=== PATIENT | male | born 1980 | race Caucasian/White ===

== ENCOUNTER → 2017-07-16 | Outpatient (CLI) | payer OTHER | END | disposition home or self-care (01) | LOC: KCIC MRI 08:32 | DX: M51.36 Other intervertebral disc degeneration, lumbar region (principal); M48.061 Spinal stenosis, lumbar region without neurogenic claudication | CPT/HCPCS: 72148 ==

== ENCOUNTER → 2018-09-16 | Outpatient (CLI) | payer OTHER ==
--- NOTE | 2018-09-16 09:22 | KCIC ---
MRI Lumbar Spine without contrast History: Low back pain, right hip pain Technique: Multiplanar, multi sequential noncontrast MR imaging was performed of the lumbar spine. Comparison: July 16, 2017 Findings: There again appears to be transitional anatomy. Most inferior fully formed intervertebral disc space is again considered L5-S1. Lumbar vertebral body stature and AP alignment are maintained. There is again mild disc desiccation L5-S1. Conus terminates at L1-2. There is no significant marrow edema. L1-L2, L2-3: Spinal canal and neural foramina are adequate. These levels were not included on the axial images. L3-L4: Neural foramina and spinal canal are adequate. There is mild to moderate facet hypertrophic change. L4-L5: There is mild buckling of the ligamentum flavum. There is minimal disc osteophyte complex. There is minimal narrowing of the inferior left neural foramen, right neural foramen adequate. Spinal canal is overall adequate. L5-S1: There is again moderate facet hypertrophic change somewhat greater on the right. There is again fluid in the right facet articulation. There is minimal buckling of the ligamentum flavum. There is minimal disc osteophyte complex, greater in the inferior neural foramina. Spinal canal is adequate. There is again yaln-mo-vfibynya narrowing of left neural foramen due to disc osteophyte complex and facet hypertrophic change, disc osteophyte complex near undersurface exiting left L5 nerve root. There is moderate to severe narrowing greater distally of the right neural foramen due to disc osteophyte complex and facet hypertrophic change, also probable tiny synovial cyst at the superior margin about 0.2 cm AP by 0.4 cm transverse by 0.2 cm CC although present previously and overall smaller. There is also contact of the undersurface exiting right L5 nerve root by disc osteophyte complex. Impression: 1. There is again transitional anatomy of the lumbar spine, most inferior fully formed intervertebral disc space considered L5-S1. There is no new significant lumbar spinal stenosis. There is again narrowing of the right L5-S1 neural foramen in part by a synovial cyst at the superior margin although smaller in interval. There is contact of the exiting right L5 nerve root. There is facet degenerative change greatest on the right at L5-S1. Electronically signed by: Carter Heredia MD (09/16/2018 9:19 AM) [facility]-KCIC[facility]
== END | disposition home or self-care (01) ==
LOC: KCIC MRI 08:27
PROVIDERS: ATTEND Physician Assistant Medical
DX: M47.817 Spondylosis without myelopathy or radiculopathy, lumbosacral region (principal); M48.07 Spinal stenosis, lumbosacral region; M71.38 Other bursal cyst, other site; M25.78 Osteophyte, vertebrae
CPT/HCPCS: 72148

== ENCOUNTER → 2018-11-21 | Outpatient (CLI) | payer OTHER ==
[~2018-11-21] MED LIST: CYCL10TA2 PO; FENO145T30 PO; LISI10TA2 PO; MELO15TA23 PO
--- NOTE | 2018-11-21 15:52 | EKG ---
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
[2018-11-21 16:05] LABS: BASO # 0.1 x10^3/uL (0.0-0.2); BASO % 1 % (0-3); EOS # 0.1 x10^3/uL (0.0-0.7); EOS % 2 % (0-3); HEMATOCRIT 47.2 % (39.0-53.0); HEMOGLOBIN 16.5 g/dL (13.0-17.5); LYMPH # 2.4 x10^3/uL (1.0-4.8); LYMPH % 27 % (24-48); MEAN CORPUSCULAR HEMOGLOBIN 32 pg (25-35); MEAN CORPUSCULAR HGB CONC 35 g/dL (31-37); MEAN CORPUSCULAR VOLUME 90 fL (79-100); MONO # 0.5 x10^3/uL (0.0-1.1); MONO % 6 % (0-9); NEUT # 5.8 x10^3/uL (1.8-7.7); NEUT % 65 % (31-73); PLATELET COUNT 321 x10^3/uL (140-400); RED BLOOD COUNT 5.22 x10^6/uL (4.30-5.70); RED CELL DISTRIBUTION WIDTH 13.2 % (11.5-14.5); WHITE BLOOD COUNT 8.9 x10^3/uL (4.0-11.0)
[2018-11-21 16:41] LABS: ALBUMIN 4.6 g/dL (3.4-5.0); ALBUMIN/GLOBULIN RATIO 1.4 (1.0-1.7); CALCIUM 9.7 mg/dL (8.5-10.1); CREATININE 1.1 mg/dL (0.7-1.3); GFR 74.5; POTASSIUM 4.1 mmol/L (3.5-5.1); TOTAL BILIRUBIN 0.5 mg/dL (0.2-1.0)
== END | disposition home or self-care (01) ==
LOC: SURGPAT 13:30
PROVIDERS: ATTEND Neurological Surgery
DX: Z01.818 Encounter for other preprocedural examination (principal); M48.07 Spinal stenosis, lumbosacral region; M47.27 Other spondylosis with radiculopathy, lumbosacral region; M71.30 Other bursal cyst, unspecified site; I10 Essential (primary) hypertension
CPT/HCPCS: 36415; 80053; 85025; 87641; 93005

== ENCOUNTER 2018-12-02 07:22 | Day surgery (SDC) | payer OTHER ==
--- NOTE | 2018-12-01 17:04 | HP ---
ADMIT DATE: 12/02/2018 PREOPERATIVE HISTORY AND PHYSICAL DATE OF SURGERY: 12/02/2018 HISTORY OF PRESENT ILLNESS: The patient is a pleasant 38-year-old who has difficulty with right inguinal pain as well as right posterior thigh pain. His problem started in 2013. He fell from the back of a truck. He says his pain is 7/10. Sitting increases his pain; lying down helps him. He takes meloxicam and Flexeril. He had epidural steroid injections in 2016 without any help. He has had physical therapy without help in the past as well. There is no significant problem on the left side. PHYSICAL EXAMINATION: GENERAL APPEARANCE: On neurosurgical examination, alert, pleasant, no acute distress. HEAD: Normocephalic and atraumatic. SKIN: Warm and dry. MUSCULOSKELETAL: Lumbar paraspinal muscle bulk is normal, restricted range of motion of the lumbar spine, gorh-lb-pdbvnlzo tenderness of the lower lumbar spine with palpation, normal range of motion of the lower extremities bilaterally. EXTREMITIES: No clubbing, cyanosis, or edema. NEUROLOGIC: Alert and oriented x3; normal recent and remote memory; strength 5/5 in bilateral lower extremities; sensory was intact to light touch in bilateral lower extremities; reflexes were present and symmetric in lower extremities bilaterally; positive straight leg raising on the right, negative straight leg raising on the left; normal gait. IMAGING REVIEWED: I reviewed a lumbar MRI scan. On that study, the principal problems were at L5-S1. He has posterior disk bulging. There is severe narrowing of the right neural foramen due to disk osteophyte complex and facet hypertrophy. There also appears to be a synovial cyst present with the foramen. The L5 root on the right appears to be in contact with the disk osteophyte complex. PAST MEDICAL HISTORY: Arthritis, headaches, migraines, and hypertension. PAST SURGICAL HISTORY: Right ear surgery. FAMILY HISTORY: Diabetes, heart problems or disease, hypertension, and spine problems. 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 He is . He exercises weekly. He denies tobacco use currently; drinks alcohol 1-2 times per year; drinks coffee. ALLERGIES: No known drug allergies. CURRENT MEDICATIONS: Cyclobenzaprine, fenofibrate, lisinopril, and meloxicam. ASSESSMENT/ PLAN: The patient has a multiyear history of back and right leg pain, which has failed to improve with extensive conservative management. There is a synovial cyst as well as hypertrophic facet disease and neural foraminal narrowing with disk bulging at L5-S1 on the right. My recommendation is we consider a hemilaminotomy with transfacet decompression of both the L5 and S1 roots at this location. I discussed this with him in detail. He would like to go ahead. We will make the arrangements. AIDAN CANO MD DR: KRISTOPHER/eliane JOB#: [id number] / [id number] MELINDA
[~2018-12-02] VITALS: Ht 165.1 cm; Wt 78.9 kg
[~2018-12-02 07:22] MED LIST changes: +BACITRACIN 50,000 UNIT in IV NORMAL SALINE 1000ML BAG 1,000 ML IRR ONE; +BUPIVAC MPF-EPI 0.5%-1:200000 30 ML VIAL. ONE; +HYDROmorphone 2 MG/ML VIAL IV PRN; +IV RINGERS,LACTATED 1000ML 1,000 ML IV SCH; +KETOROLAC 60 MG/2 ML INJ FOR OR. ONE; +MORPHINE SULFATE 2 MG/ML VIAL. IV PRN; +ONDANSETRON PF 4 MG/2 ML VIAL. IV PRN; +PROCHLORPERAZINE 10 MG/2 ML VIAL. IV PRN; +PROPOFOL 100 ML IV ONE; +SURGICEL FIBRILLAR 1X2 EACH. ONE; +THROMBIN TOPICAL 20,000 UNIT SPRAY.SYRN KIT TP ONE; +ceFAZolin 2GM PREMIX 2 GM/50 ML BAG IV ONE; +fentaNYL PF VIAL 100 MCG/2 ML VIAL IV PRN
[2018-12-02] MEDS ORDERED: ROCURONIUM 50 MG/5 ML VIAL. ONE (08:07)
[2018-12-02] MEDS ORDERED: REMIFENTANIL 2 MG VIAL. IV ONE (08:07)
[2018-12-02] MEDS ORDERED: fentaNYL PF VIAL 100 MCG/2 ML VIAL ONE ×2 (08:07→12:08)
[2018-12-02] MEDS ORDERED: GLYCOPYRROLATE 1 MG/5 ML VIAL. ONE (08:07)
[2018-12-02] MEDS ORDERED: NEOSTIGMINE METHYLSULFATE 5 MG/5 ML SYRINGE. ONE (08:07)
[2018-12-02] MEDS ORDERED: DESFLURANE > 120 MINUTES IH ONE (08:07)
[2018-12-02] MEDS ORDERED: MIDAZOLAM HCL/PF 2 MG/2 ML VIAL. ONE (08:08)
[2018-12-02] MEDS ORDERED: LIDOCAINE 2% PF 5 ML VIAL. ONE (08:08)
[2018-12-02] MEDS ORDERED: ONDANSETRON PF 4 MG/2 ML VIAL. ONE (08:08)
[2018-12-02] MEDS ORDERED: DEXAMETHASONE SOD PHOS 4 MG/ML VIAL ONE (08:08)
[2018-12-02] MEDS ORDERED: PROPOFOL 20 ML IV ONE (08:08)
[2018-12-02] MEDS ORDERED: PHENYLEPHRINE 10 MG/ML VIAL. ONE (08:10)
[2018-12-02] MEDS ORDERED: HYDR-3164 PO (11:45)
[2018-12-02] MEDS ORDERED: DOCU-109 PO (11:45)
--- NOTE | 2018-12-02 11:50 | DISCH ---
DISCHARGE INSTRUCTIONS Condition on Discharge Condition on Discharge: Stable Activity After Discharge Activity Instructions for Disc: Activity as tolerated, Avoid exertion Other activity instructions: no driving for a week Bathing Instructions: Shower-keep dressing dry Diet after Discharge Additional Diet Restrictions: resume home diet Wound Incision Care Wound/Incision Care: Ice to area for comfort Other wound/incision instructi: may remove dressing in 48 hours if dry, keep steri strips on, no soaking Contacting the [facility] after DC Call your doctor for: Concerns you may have Follow-Up Follow up with: Dr. Cano's nurse in 2 weeks [phone] AIDAN CANO MD Dec 02, 2018 11:50
[2018-12-02] MEDS ORDERED: MORPHINE SULFATE 2 MG/ML VIAL. ONE (12:09)
[2018-12-02] MEDS: fentaNYL PF VIAL 100 MCG/2 ML VIAL IV PRN ×2 (12:10→12:39)
[2018-12-02] MEDS ORDERED: HYDROcodone/APAP 5/325MG 1 TAB TABLET PO ONE ×2 (12:30)
[2018-12-02 12:48] VITALS: BP 140/87
--- NOTE | 2018-12-02 13:43 | OP ---
DATE OF SURGERY: 12/02/2018. PREOPERATIVE DIAGNOSES: Foraminal synovial cyst, L5-S1, right, with right lumbar radiculopathy. POSTOPERATIVE DIAGNOSES: 1. Synovial cyst, right, L5-S1. 2. Synovial cyst, medial to the pedicle of S1 compressing the right S1 nerve root. PROCEDURES PERFORMED: 1. Transfacet exposure with decompression of the right L5 root and removal of foraminal synovial cyst. 2. Hemilaminotomy with removal of synovial cyst compressing the right S1 nerve root medial to the pedicle of S1. The operation was done with EMG monitoring, SSEP monitoring, fluoroscopy, and microscopic dissection. SURGEON: Jarrett Cano M.D. OUTPATIENT INTERVIEWING CLERK: ARIANNE Brush assisted with the surgery. She assisted with the exposure, microdecompression, removal of synovial cysts, and closure. INDICATIONS FOR PROCEDURE: The patient is a pleasant 38-year-old, who has a long history of problems with back and right leg pain. He has been through physical therapy as well as epidural steroid injections and has not improved significantly. On imaging studies, a foraminal synovial cyst was seen on imaging studies and I recommended lumbar microsurgery. At the time of the operation, however, on review the films further, there was a suggestion of a compressive lesion just lateral to the S1 root on the medial side of the pedicle of S1. I decided to unroof and investigate that area as well. DESCRIPTION OF PROCEDURE: Following general endotracheal anesthesia, the patient was positioned prone on the Guzman table. The lumbar region was prepped and draped in standard fashion. JOSE ENRIQUE hose and AV impulse boots were applied for deep vein thrombosis prophylaxis. Microscope was draped. Fluoroscopy was draped and brought into the field. Monitoring was established. Ancef 2 g was given less than 1 hour prior to initiation of the surgery. Using fluoroscopic guidance, a midline incision was made directly over the L5-S1 interspace. Dissection was carried down through the skin and subcutaneous tissue and I reflected the paraspinal muscles to the right and placed retractors allowing excellent exposure. I drilled a hemilaminotomy at L5-S1 and then worked superiorly and visualized the L5 root and then followed this laterally quite far out into the foramen where I encountered a large synovial cyst markedly compressing the nerve from the superior side and pushing it inferiorly and posteriorly. I continued my unroofing work laterally further virtually completely opening the foramen and I was able to grasp, peel away, remove the origin, and remove the synovial cyst. I then explored carefully. The L5 root was very free. I then moved back to the hemilaminotomy site and working inferiorly, I removed thickened ligamentum flavum and performed a partial foraminotomy. As I worked inferiorly, there was another mass coming off the S1-S2 facet and was compressing the S1 root just medial to the pedicle of S1 about its mid position. I continued to unroof the nerve and then I grasped and then peeled this away. This was a capsulated synovial cyst, which I freed up, peeled away, and fully removed. The S1 root then moved superolaterally and was much better visualized under no compression and I explored carefully and assured this. I then irrigated copiously, removed the retractors, obtained hemostasis in the muscle, closed the fascia in separate layers as well as subcutaneous tissue, irrigated multiple times, and I obtained excellent hemostasis prior to closure. The subcutaneous tissue was closed. The skin was closed with 4-0 subcuticular stitch. The operation went very well. I was quite pleased with the surgery. JARRETT CANO MD DR: KRISTOPHER/eliane JOB#: [id number] / [id number] MELINDA
--- NOTE | 2018-12-05 18:06 | PATHOLOGY ---
[facility] Accession Number: [id number] . 01 Material submitted: . PART A: vertebral column - LUMBAR DECOMPRESSION PART B: vertebral column - LUMBAR SYNOVIAL CYST . 01 Clinical history: . Radiculopathy, lumbar stenosis, synovial cyst . 02 Diagnosis: A. Segments of fibrocartilaginous, adipose, and skeletal muscle tissue and bone, lumbar decompression: - Degenerative changes of fibrocartilaginous tissue. . B. Segments of synovial and fibrocartilaginous tissue and bone, lumbar synovial cyst: - Synovial cyst. LBQ/12/05/2018 . 02 Comment: There is no evidence of an acute inflammatory process or malignancy. (JPM/db; 12/05/2018) . 02 Electronically signed: . Tony Pastor MD, Pathologist NPI- [id number] . 01 Gross description: . A. The specimen is received in formalin, labeled "Primo, Elbert, lumbar decompression", are multiple irregular fragments of moore-yellow and gritty tissue possibly admixed with bone spicule measuring 3.0 x 2.8 x 0.7 cm in aggregate. Representatively submitted in A1, after decalcification. . B. The specimen is received in formalin, labeled "Primo, Elbert, lumbar synovial cyst", are multiple irregular fragments of moore-yellow and gritty tissue possibly admixed with bone spicule measuring 1.5 x 1.3 x 0.2 cm in aggregate. Entirely submitted in B1, after decalcification. (SWS; 12/02/2018) SHS/SHS . 02 Pathologist provided ICD-10: M51.36, M71.38 . 02 CPT . 503954, 386519, 489380, 651073 Specimen Comment: A courtesy copy of this report has been sent to Specimen Comment: [phone], . Specimen Comment: Report sent to / DR ELLIOTT Performed at: [address] [id number] MD Roque Higgins MD Phone: [phone] Performed at: [address] [id number] MD Tony Pastor MD Phone: [phone]
== END 2018-12-02 13:54 | disposition home or self-care (01) ==
LOC: SURG 07:22
PROVIDERS: ATTEND Neurological Surgery
DX: M48.061 Spinal stenosis, lumbar region without neurogenic claudication (principal); M71.38 Other bursal cyst, other site; I10 Essential (primary) hypertension; G43.909 Migraine, unspecified, not intractable, without status migrainosus; Z87.39 Personal history of other diseases of the musculoskeletal system and connective tissue; Z72.89 Other problems related to lifestyle
CPT/HCPCS: 63030; 63047; 76000; 88304; 88311; 97116; 97162; 97530; A7015; J0696; J1100; J1885; J2001; J2250; J2270; J2405; J2704; J2710; J3010; J3490; J7030; J7120